=== PATIENT | female | born 1965 | race Caucasian/White ===

== ENCOUNTER 2021-02-14 20:17 | Emergency (ER) | payer OTHER | END 2021-02-15 01:05 | disposition home or self-care (01) | LOC: FER 20:17 | DX: U07.1 COVID-19 (principal); Z88.0 Allergy status to penicillin; Z85.118 Personal history of other malignant neoplasm of bronchus and lung; Z23 Encounter for immunization | CPT/HCPCS: M0243; Q0244 ==